=== PATIENT | male | born 1970 | race Two or more races ===

== ENCOUNTER 2023-01-21 21:35 | Inpatient (IN) | payer OTHER ==
[2023-01-21 22:10] VITALS: BMI 32.4
[2023-01-21] MEDS ORDERED: COLLOIDAL OATMEAL 1 BAR EACH TP PRN (22:50)
[2023-01-21] MEDS ORDERED: IBUPROFEN 600 MG TABLET (FP) PO PRN (22:51)
[2023-01-21] MEDS ORDERED: ONDANSETRON *ODT* 4 MG TABLET SL PRN (22:51)
[2023-01-21] MEDS ORDERED: NALOXONE HCL (KLOXXADO) 8 MG SPRAY NS PRN (22:51)
[2023-01-21] MEDS ORDERED: DICYCLOMINE HCL 10 MG CAPSULE PO PRN (22:51)
[2023-01-21] MEDS ORDERED: guaiFENesin 600 MG TABLET.ER (FP) PO PRN (22:51)
[2023-01-21] MEDS ORDERED: BENZONATATE 200 MG CAPSULE PO PRN (22:51)
[2023-01-21] MEDS ORDERED: P-EPHED 60MG/TRIPROLIDI 2.5MG TABLET PO PRN (22:51)
[2023-01-21] MEDS ORDERED: BISMUTH SUBSALICYLATE 524 MG/30 ML PO PRN (22:51)
[2023-01-21] MEDS ORDERED: IBUPROFEN 400 MG TABLET (FP) PO PRN (22:51)
[2023-01-21] MEDS ORDERED: BENZOCAINE/MENTHOL (CHLORASEPTIC ) LOZENGE MM PRN (22:51)
[2023-01-21] MEDS ORDERED: MAG HYDROX/AL HYDROX/SIMETH 30 ML UNIT-DOSE CUP PO PRN (22:51)
[2023-01-21] MEDS ORDERED: POLYETHYLENE GLYCOL (HEALTHYLAX) 3350 17 GM PACKET PO PRN (22:51)
[2023-01-21] MEDS ORDERED: LOPERAMIDE HCL 2 MG CAPSULE PO PRN (22:51)
[2023-01-21] MEDS ORDERED: MAGNESIUM HYDROX 2400MG/30ML ORAL SUSPENSION 30 ML CUP PO PRN (22:51)
[2023-01-21] MEDS ORDERED: ACETAMINOPHEN 325 MG TABLET (FP) PO PRN ×2 (22:51)
[2023-01-21] MEDS ORDERED: NALOXONE HCL 0.4 MG/ML VIAL IM PRN (22:51)
[2023-01-21] MEDS ORDERED: NICOTINE 10 MG CARTRIDGE (INHALER) IH PRN (22:51)
[2023-01-21] MEDS ORDERED: LISINOPRIL 5 MG TABLET PO ONE (22:57)
[2023-01-21] MEDS ORDERED: LISINOPRIL 10 MG TABLET ONE (23:16)
[2023-01-22] MEDS ORDERED: METHOCARBAMOL 500 MG TABLET ONE (01:20)
[2023-01-22] MEDS: METHOCARBAMOL 500 MG TABLET PO PRN ×2 (01:22→11:32)
[2023-01-22] MEDS ORDERED: cloNIDine HCL 0.1 MG TABLET PO ONE ×2 (01:29→07:45)
[2023-01-22] MEDS ORDERED: cloNIDine HCL 0.1 MG TABLET ONE ×2 (01:33→07:42)
[2023-01-22] MEDS ORDERED: chlordiazePOXIDE HCL 25 MG CAPSULE PO PRN (09:08)
[2023-01-22] MEDS ORDERED: chlordiazePOXIDE HCL 25 MG CAPSULE ONE (10:44)
[2023-01-22] MEDS ORDERED: PRENATAL VITAMINS W/ FOLIC ACID TABLET (FP) PO ONE (10:45)
[2023-01-22] MEDS: PANTOPRAZOLE 40 MG TABLET PO SCH (11:06)
[2023-01-22] MEDS: chlordiazePOXIDE HCL 25 MG CAPSULE PO SCH ×3 (11:06→22:41)
[2023-01-22] MEDS: PRENATAL VITAMINS W/ FOLIC ACID TABLET (FP) PO SCH (11:07)
[2023-01-22 11:58] LABS: HEMATOCRIT 43.7 % (35.4-49); MCH 31.4 pg (25.7-33.7); MEAN CELL VOLUME 98.3 fl (80-96); MEAN PLT VOLUME 9.7 fl (7.5-11.1); PLATELET COUNT 216 10^3/uL (134-434); RBC 4.45 M/mm3 (4.00-5.60); RDW 13.1 % (11.9-15.9); WHITE BLOOD COUNT 7.4 K/mm3 (4.0-10.0)
[2023-01-22 12:07] LABS: POTASSIUM 4.3 mmol/L (3.5-5.1)
[2023-01-22 12:17] LABS: ALBUMIN 3.4 g/dl (3.4-5.0); BLOOD UREA NITROGEN 17.2 mg/dL (7-18); CALCIUM 9.1 mg/dL (8.5-10.1)
[2023-01-22 12:21] LABS: BILIRUBIN,TOTAL 1.1 mg/dL (0.2-1); CREATININE 0.8 mg/dL (0.55-1.3); TOT PROT 7.2 g/dl (6.4-8.2)
[2023-01-22 13:05] LABS: HIV INTERPRETATION NEGATIVE (NEGATIVE)
[2023-01-22] MEDS: THIAMINE HCL 100 MG TABLET (FP) PO SCH (22:40)
[2023-01-23] MEDS: chlordiazePOXIDE HCL 25 MG CAPSULE PO SCH ×4 (05:55→22:55)
[2023-01-23] MEDS: METHOCARBAMOL 500 MG TABLET PO PRN (05:59)
[2023-01-23] MEDS: PANTOPRAZOLE 40 MG TABLET PO SCH (10:08)
[2023-01-23] MEDS: PRENATAL VITAMINS W/ FOLIC ACID TABLET (FP) PO SCH (10:08)
[2023-01-23] MEDS: amLODIPine BESYLATE 5 MG TABLET (FP) PO SCH (10:08)
[2023-01-23] MEDS: THIAMINE HCL 100 MG TABLET (FP) PO SCH (22:55)
[2023-01-24] MEDS: chlordiazePOXIDE HCL 25 MG CAPSULE PO SCH ×4 (05:52→22:35)
[2023-01-24] MEDS: METHOCARBAMOL 500 MG TABLET PO PRN ×2 (06:19→22:33)
[2023-01-24] MEDS: hydrOXYzine PAMOATE 25 MG CAPSULE (FP) PO PRN ×2 (06:19→22:33)
[2023-01-24] MEDS ORDERED: cloNIDine HCL 0.1 MG TABLET PO ONE (07:19)
[2023-01-24] MEDS: PANTOPRAZOLE 40 MG TABLET PO SCH (10:44)
[2023-01-24] MEDS: PRENATAL VITAMINS W/ FOLIC ACID TABLET (FP) PO SCH (10:44)
[2023-01-24] MEDS: amLODIPine BESYLATE 5 MG TABLET (FP) PO SCH (10:44)
[2023-01-24] MEDS: THIAMINE HCL 100 MG TABLET (FP) PO SCH (22:33)
[2023-01-24] MEDS: MELATONIN 5 MG TABLETS PO PRN (22:33)
[2023-01-25] MEDS ORDERED: chlordiazePOXIDE HCL 10 MG CAPSULE PO PRN
[2023-01-25] MEDS: chlordiazePOXIDE HCL 10 MG CAPSULE PO SCH ×4 (06:18→22:44)
[2023-01-25] MEDS: amLODIPine BESYLATE 5 MG TABLET (FP) PO SCH (10:03)
[2023-01-25] MEDS: PANTOPRAZOLE 40 MG TABLET PO SCH (10:03)
[2023-01-25] MEDS: PRENATAL VITAMINS W/ FOLIC ACID TABLET (FP) PO SCH (10:03)
[2023-01-25] MEDS: MELATONIN 5 MG TABLETS PO PRN (22:43)
[2023-01-25] MEDS: THIAMINE HCL 100 MG TABLET (FP) PO SCH (22:43)
[2023-01-25] MEDS: hydrOXYzine PAMOATE 25 MG CAPSULE (FP) PO PRN (22:44)
[2023-01-25] MEDS: METHOCARBAMOL 500 MG TABLET PO PRN (22:44)
[2023-01-26] MEDS: chlordiazePOXIDE HCL 10 MG CAPSULE PO SCH ×2 (06:00→17:36)
[2023-01-26] MEDS: PRENATAL VITAMINS W/ FOLIC ACID TABLET (FP) PO SCH (11:12)
[2023-01-26] MEDS: PANTOPRAZOLE 40 MG TABLET PO SCH (11:12)
[2023-01-26] MEDS: amLODIPine BESYLATE 5 MG TABLET (FP) PO SCH (11:12)
[2023-01-26] MEDS: THIAMINE HCL 100 MG TABLET (FP) PO SCH (22:21)
[2023-01-27] MEDS ORDERED: chlordiazePOXIDE HCL 10 MG CAPSULE PO ONE (05:00)
[2023-01-27] MEDS: hydrOXYzine PAMOATE 25 MG CAPSULE (FP) PO PRN (06:06)
[2023-01-27] MEDS: METHOCARBAMOL 500 MG TABLET PO PRN (06:07)
[2023-01-27] MEDS ORDERED: cloNIDine HCL 0.1 MG TABLET PO ONE (07:39)
[2023-01-27 09:28] VITALS: BP 155/90; PULSE 83; RESP 20; TEMP 97.7
[2023-01-27] MEDS: amLODIPine BESYLATE 5 MG TABLET (FP) PO SCH (10:36)
[2023-01-27] MEDS: PRENATAL VITAMINS W/ FOLIC ACID TABLET (FP) PO SCH (10:36)
[2023-01-27] MEDS: PANTOPRAZOLE 40 MG TABLET PO SCH (10:37)
== END 2023-01-27 09:44 | disposition home or self-care (01) | DRG 774 ==
LOC: YASAS 21:35 → Y3N 01-22 09:57
PROVIDERS: ADMIT Allergy & Immunology; ATTEND Surgery
PROC: HZ2ZZZZ Detoxification Services for Substance Abuse Treatment (ICD-10-PCS; principal; 2023-01-22)
DX: F10.230 Alcohol dependence with withdrawal, uncomplicated (principal); F14.20 Cocaine dependence, uncomplicated; F12.20 Cannabis dependence, uncomplicated; F17.210 Nicotine dependence, cigarettes, uncomplicated; I10 Essential (primary) hypertension; K21.9 Gastro-esophageal reflux disease without esophagitis; M54.50 Low back pain, unspecified; G89.29 Other chronic pain; M25.561 Pain in right knee; Z59.01 Sheltered homelessness
CPT/HCPCS: 36415; 80053; 85027; 86593; 86780; 87389; 87635; 87811